=== PATIENT | female | born 1985 | race Asian ===

== ENCOUNTER 2016-08-09 00:26 | Emergency (ER) | payer OTHER ==
[2016-08-09 00:36] VITALS: RESP 16; TEMP 97.9
[2016-08-09] MEDS ORDERED: NS 1,000 ML IV ONE (00:47)
[2016-08-09 01:16] LABS: % IMMATURE GRANULYOCYTES 0.5 % (0.0-1.1); ABSOLUTE IMMATURE GRANULOCYTES 0.07 10^3/uL (0.00-0.10); ADD DIFF? NO; ADD MORPH? NO; ADD SCAN? NO; ATYPICAL LYMPHOCYTE FLAG 20 (0-99); FRAGMENT RBC FLAG 0 (0-99); HEMOGLOBIN 12.9 g/dL (12.6-16.3); LEFT SHIFT FLG 0 (0-99); LIPEMIA HEMOLYSIS FLAG 80 (0-99); MEAN CELL HEMOGLOBIN 26.5 pg (27.9-34.1); MEAN CELL HEMOGLOBIN CONCENTR. 33.1 g/dL (32.4-36.7); MEAN CELL VOLUME 80.1 fL (81.5-99.8); MEAN PLATELET VOLUME 10.5 fL (8.7-11.7); PLATELET CLUMPS FLAG 0 (0-99); PLATELET COUNT 298 10^3/uL (150-400); RED BLOOD CELL COUNT 4.87 10^6/uL (4.18-5.33); RED CELL DISTRIBUTION WIDTH 13.1 % (11.5-15.2)
[2016-08-09 01:24] LABS: ANION GAP 16 mEq/L (8-16); CALCIUM 9.8 mg/dL (8.5-10.4); CARBON DIOXIDE 18 mEq/l (22-31); CHLORIDE 108 mEq/L (97-110); CREATININE 0.7 mg/dL (0.6-1.0); GLOMERULAR FILTRATION RATE > 60; GLUCOSE 140 mg/dL (70-100); POTASSIUM 3.1 mEq/L (3.5-5.2); SODIUM 142 mEq/L (134-144)
[2016-08-09] MEDS ORDERED: POTASSIUM CL 20 MEQ/15 ML UDCUP PO ONE (01:33)
--- NOTE | 2016-08-09 01:33 | EDPHY ---
H & P Stated Complaint: near syncope-s/p wisdom teeth with marinol and hydrocodone Time Seen by Provider: 08/09/16 01:16 HPI/ROS: HPI The patient presents with an episode of dizziness which occurred just prior to arrival. She is brought in by paramedics. She earlier today had 4 wisdom teeth extracted under nitrous oxide sedation. She did not have anything to eat or drink today. She took 2 Feura Bush tabs as well as her antibiotic and then began to vomit, felt very lightheaded and had difficulty breathing. Upon arrival of paramedics, her vital signs were normal though she was unable to walk she was feeling so lightheaded.. REVIEW OF SYSTEMS Constitutional: No fever, no chills. Eyes: No discharge. ENT: No sore throat. Cardiovascular: No chest pain, no palpitations. Respiratory: No cough, no shortness of breath. Gastrointestinal: No abdominal pain, no vomiting. Genitourinary: No hematuria. Musculoskeletal: No back pain. Skin: No rashes. Neurological: No headache. PMHx: Healthy Soc Hx: Lives at home with her and child PHYSICAL General Appearance: Alert, no distress Eyes: Pupils equal and round no pallor or injection ENT, Mouth: Mucous membranes moist Respiratory: There are no retractions, lungs are clear to auscultation Cardiovascular: Regular rate and rhythm Gastrointestinal: Abdomen is soft and non-tender, no masses, bowel sounds normal Neurological: A&O, moves all extremities Skin: Warm and dry, no rashes Musculoskeletal: Neck is supple non tender Extremities: symmetrical, full range of motion Psychiatric: Patient is oriented X 3, there is no agitation Source: Patient, Family, EMS Exam Limitations: No limitations - Personal History LMP (Females 10-55): Unknown Current Tetanus Diphtheria and Acellular Pertussis (TDAP): Yes - Medical/Surgical History Hx Asthma: No Hx Chronic Respiratory Disease: No Hx Diabetes: No Hx Cardiac Disease: No Hx Renal Disease: No Hx Cirrhosis: No Hx Alcoholism: No Hx HIV/AIDS: No Hx Splenectomy or Spleen Trauma: No Other PMH: wisdom teeth, - Social History Smoking Status: Never smoked Constitutional: Initial Vital Signs Temperature (C) 36.6 C 08/09/16 00:33 Heart Rate 84 08/09/16 00:33 Respiratory Rate 16 08/09/16 00:33 Blood Pressure 151/83 H 08/09/16 00:33 O2 Sat (%) 95 08/09/16 00:33 O2 Delivery Mode Room Air Allergies/Adverse Reactions: No Known Allergies Allergy (Unverified 08/09/16 00:32) Home Medications: Medication Instructions Recorded Hydrocodon-Acetaminophen 5-325 08/09/16 Marinol 08/09/16 Medical Decision Making Differential Diagnosis: This is a 30-year-old female status post wisdom tooth extraction earlier today who presents with an episode of lightheadedness. She did take 2 Feura Bush tabs before this and vomited. She has had minimal PO intake today. She is feeling better now. Differential diagnosis includes hypotension, dehydration, medication side-effect , anemia. In the emergency room, the patient was given 1 L of IV fluid with improvement in her symptoms. She was able to walk around the ER without any difficulty. Labs were performed and did reveal mild leukocytosis. She also had slightly low potassium and this was repleted p.o.. She will be discharged from the emergency room in good condition. - Data Points Laboratory Results: Laboratory Results 08/09/16 00:40 08/09/16 00:40 08/09/16 08/09/16 00:40 00:40 WBC 12.83 10^3/uL H 10^3/uL (3.80-9.50) RBC 4.87 10^6/uL 10^6/uL (4.18-5.33) Hgb 12.9 g/dL g/dL (12.6-16.3) Hct 39.0 % % (38.0-47.0) MCV 80.1 fL L fL (81.5-99.8) MCH 26.5 pg L pg (27.9-34.1) MCHC 33.1 g/dL g/dL (32.4-36.7) RDW 13.1 % % (11.5-15.2) Plt Count 298 10^3/uL 10^3/uL (150-400) MPV 10.5 fL fL (8.7-11.7) Neut % (Auto) 72.8 % % (39.3-74.2) Lymph % (Auto) 20.5 % % (15.0-45.0) [place] % (Auto) 5.5 % % (4.5-13.0) Eos % (Auto) 0.5 % L % (0.6-7.6) Baso % (Auto) 0.2 % L % (0.3-1.7) Nucleat RBC Rel Count 0.0 % % (0.0-0.2) Absolute Neuts (auto) 9.32 10^3/uL H 10^3/uL (1.70-6.50) Absolute Lymphs (auto) 2.63 10^3/uL 10^3/uL (1.00-3.00) Absolute Monos (auto) 0.71 10^3/uL 10^3/uL (0.30-0.80) Absolute Eos (auto) 0.07 10^3/uL 10^3/uL (0.03-0.40) Absolute Basos (auto) 0.03 10^3/uL 10^3/uL (0.02-0.10) Absolute Nucleated RBC 0.00 10^3/uL 10^3/uL (0-0.01) Immature Gran % 0.5 % % (0.0-1.1) Immature Gran # 0.07 10^3/uL 10^3/uL (0.00-0.10) Sodium 142 mEq/L mEq/L (134-144) Potassium 3.1 mEq/L L mEq/L (3.5-5.2) Chloride 108 mEq/L mEq/L (97-110) Carbon Dioxide 18 mEq/l L mEq/l (22-31) Anion Gap 16 mEq/L mEq/L (8-16) BUN 12 mg/dL mg/dL (7-23) Creatinine 0.7 mg/dL mg/dL (0.6-1.0) Estimated GFR > 60 Glucose 140 mg/dL H mg/dL (70-100) Calcium 9.8 mg/dL mg/dL (8.5-10.4) Medications Given: Discontinued Medications Sodium Chloride (Ns) 1,000 mls @ 0 mls/hr IV ONCE ONE; Wide Open PRN Reason: Protocol Stop: 08/09/16 00:48 Last Admin: 08/09/16 00:48 Dose: 1,000 mls Departure - Departure Disposition: Home, Routine, Self-Care Clinical Impression: Dizziness, Hypokalemia Condition: Good Instructions: Lightheadedness (ED) Additional Instructions: Please make sure to drink plenty of fluids. You should take just a half tab of your pain pill as needed for pain. You can try Tylenol or ibuprofen 1st. Please return to the emergency room if your worse in any way. Referrals: Patient,NotPresent [Unknown] - As per Instructions
[2016-08-09] MEDS ORDERED: POTASSIUM CL 20 MEQ TAB ONE (01:55)
[2016-08-09 02:12] VITALS: BP 134/90; PULSE 88; O2SAT 99
== END 2016-08-09 02:25 | disposition home or self-care (01) ==
LOC: EDUNIT#
DX: R42 Dizziness and giddiness (principal); E87.6 Hypokalemia; E86.9 Volume depletion, unspecified